=== PATIENT | female | born 1985 | race Caucasian/White ===

== ENCOUNTER 2017-02-10 11:09 | Emergency (ER) | payer BC ==
[2017-02-10 11:30] VITALS: BP 121/73
--- NOTE | 2017-02-10 12:06 | UC ---
Respiratory Complaint HPI - HPI Summary HPI Summary: 31 yo female with cough and runny nose and sinus pressure x days now ears popping - History of Current Complaint Chief Complaint: UCGeneralIllness Stated Complaint: SORE THROAT/EAR PAIN Time Seen by Provider: 02/10/17 11:52 Hx Obtained From: Patient Hx Last Menstrual Period: 01/12/17 Onset/Duration: Gradual Onset, Lasting Days Timing: Constant Severity Initially: Moderate Severity Currently: Moderate Pain Intensity: 3 Pain Scale Used: 0-10 Numeric Character: Cough: Nonproductive Aggravating Factors: Nothing Alleviating Factors: Nothing Associated Signs And Symptoms: Positive: Nasal Congestion, Hoarseness, Sinus Discomfort - Allergies/Home Medications Allergies/Adverse Reactions: Allergies Allergy/AdvReac Type Severity Reaction Status Date / Time Cefdinir [From Omnicef] Allergy Hives Verified 02/10/17 11:30 Sodium Benzoate Allergy Hives Verified 02/10/17 11:30 [From Omnicef] PMH/Surg Hx/FS Hx/Imm Hx Previously Healthy: Yes - Surgical History Surgical History: Yes Surgery Procedure, Year, and Place: deviated septum; 2 kidney stones (one removed and one blasted; both right side she thinks); breast augmentation - Family History Known Family History: Positive: Hypertension - Social History Alcohol Use: None Substance Use Type: None Smoking Status (MU): Never Smoked Tobacco Have You Smoked in the Last Year: No - Immunization History Most Recent Influenza Vaccination: 2016 Most Recent Tetanus Shot: 03/08/14 Most Recent Pneumonia Vaccination: never Review of Systems Constitutional: Fatigue Skin: Negative Eyes: Negative ENT: Nasal Discharge, Sinus Congestion, Sinus Pain/Tenderness Respiratory: Cough Cardiovascular: Negative Gastrointestinal: Negative Genitourinary: Negative Motor: Negative Neurovascular: Negative Musculoskeletal: Negative Neurological: Negative Psychological: Negative Is Patient Immunocompromised?: No All Other Systems Reviewed And Are Negative: Yes Physical Exam Triage Information Reviewed: Yes Appearance: Well-Appearing, No Pain Distress, Well-Nourished Vital Signs: Initial Vital Signs Temp 97.9 F 02/10/17 11:24 Pulse 112 02/10/17 11:24 Resp 20 02/10/17 11:24 BP 121/73 02/10/17 11:24 Pulse Ox 100 02/10/17 11:24 Eyes: Positive: Conjunctiva Clear ENT: Positive: Hearing grossly normal, Nasal congestion, Nasal drainage, TM bulging, Sinus tenderness, Uvula midline Dental Exam: Normal Neck: Positive: Supple, Nontender, No Lymphadenopathy Respiratory: Positive: Lungs clear, Normal breath sounds Cardiovascular: Positive: RRR, No Murmur Neurological: Positive: Alert Psychological Exam: Normal Skin Exam: Normal UC Diagnostic Evaluation - Laboratory O2 Sat by Pulse Oximetry: 100 - normal/not hypoxic Respiratory Course/Dx - Differential Dx/Diagnosis Provider Diagnoses: bilateral serous otitis media. URI Discharge - Discharge Plan Condition: Stable Disposition: HOME Prescriptions: Amoxicillin PO (*) [Amoxicillin 875 MG (*)] 875 mg PO BID #20 tab Fluconazole 150 MG (NF) [Diflucan 150 mg (NF)] 150 mg PO ONCE #1 tab Patient Education Materials: Sinusitis (ED) Referrals: No Primary Care Phys,NOPCP [Primary Care Provider] - Additional Instructions: recheck next week if not better recheck sooner for worsening symptoms
== END 2017-02-10 12:14 | disposition home or self-care (01) ==
LOC: UCEAST 11:09
DX: H65.93 Unspecified nonsuppurative otitis media, bilateral (principal); J06.9 Acute upper respiratory infection, unspecified
CPT/HCPCS: 87651; 99212; G0463